=== PATIENT | female | born 1930 | race Caucasian/White ===

== ENCOUNTER 2018-01-13 18:39 | Emergency (ER) | payer MEDICARE, BC ==
[2018-01-13 19:28] LABS: #Basophils 0.1 thou/uL (0.0-0.2); #Eosinphils 0.1 thou/uL (0.0-0.7); #Lymphocytes 1.9 thou/uL (1.20-3.40); #Monocytes 0.9 thou/uL (0.11-0.59); %Basophils 0.5 % (0.0-1.0); %Eosinophils 0.5 % (0.0-10.0); %Lymphocytes 13.7 % (21.0-51.0); %Monocytes 6.6 % (0.0-10.0); %Neutrophils 78.7 % (42.0-75.0); Hemoglobin 14.3 g/dL (12.0-16.0); Mean Corpuscular HGB CONC 32.8 g/dL (32.0-36.0); Mean Corpuscular Hemoglobin 31.3 pg (27.0-31.0); Mean Corpuscular Volume 95.5 fl (81.0-99.0); Platelet Count 308 thou/uL (130-400); RBC Distribution Width 11.8 % (11.5-14.5); Red Blood Cell (RBC) Count 4.58 mill/uL (4.20-5.40)
[2018-01-13 19:52] LABS: ALT (SGPT) 15 U/L (8-55); AST (SGOT) 18 U/L (5-34); Albumin 3.8 g/dL (3.4-4.8); Alkaline Phosphatase 122 U/L (40-150); Anion Gap 14 mmol/L (10-20); BUN (Urea Nitrogen) 15 mg/dL (9.8-20.1); Bilirubin, Total 0.3 mg/dL (0.2-1.2); CK (CPK) 26 U/L (29-168); Calc. Creatinine Clearance 0 mL/min (70-130); Calcium 9.7 mg/dL (7.8-10.44); Carbon Dioxide 25 mmol/L (23-31); Chloride 102 mmol/L (98-107); Estimated GFR-MDRD 54; Globulin 3.7 g/dL (2.4-3.5); Glucose 142 mg/dL (83-110); Potassium 4.3 mmol/L (3.5-5.1); Protein, Total 7.5 g/dL (6.0-8.3); Sodium 137 mmol/L (136-145)
[2018-01-13 19:57] LABS: CKMB 0.4 ng/mL (0-6.6); Troponin I Less than 0.010 ng/mL (< 0.028)
--- NOTE | 2018-01-13 20:26 | RAD ---
CHEST ONE VIEW 01/13/18 HISTORY: Weakness. Cough. Fever. FINDINGS: Cardiac silhouette is magnified by projection. Pulmonary vasculature is unremarkable. Lungs remain hy perinflated with scarring at the bases. Mediastinum is midline with aortic calcification. Prominence of the right upper mediastinum is stable and likely related to tortuosity of the vasculature. No loba r consolidation or evidence of pneumothorax. IMPRESSION: Chronic type findings are stable. No active cardiopulmonary abnormalities are demonstrated. POS: [facility]
[2018-01-13 21:25] LABS: Bilirubin Negative (Negative); Blood, Urine Negative (Negative); Clarity CLEAR (Clear); Glucose, Urine (Dipstick) Negative (Negative); Leukocyte Small (Negative); Nitrite Negative (Negative); Protein, Urine (Dipstick) Negative (Neg-Trace); Specific Gravity, Urine 1.008 (1.002-1.036)
[2018-01-13 21:27] LABS: Bacteria/HPF 1+ HPF (None Seen); Hyaline Casts/LPF 0-3 HYALINE CAST LPF (0-3 Hyaline); RBC/HPF None Seen HPF (0-3); Squamous Epithelial 0-3 HPF (0-3)
--- NOTE | 2018-01-16 13:10 | EKG ---
Test Reason : Blood Pressure : / mmHG Vent. Rate : 102 BPM Atrial Rate : 102 BPM P-R Int : 134 ms QRS Dur : 120 ms QT Int : 358 ms P-R-T Axes : 013 -49 -28 degrees QTc Int : 466 ms Sinus tachycardia Left axis deviation Right bundle branch block Possible Lateral infarct , age undetermined Inferior infarct , age undetermined Abnormal ECG Confirmed by MELISA CARBALLO ([id number]), communications editor YANY ZEPEDA ([id number]) on 01/16/2018 1:09:37 PM Referred By: Confirmed By:MELISA CARBALLO
== END 2018-01-13 22:48 | disposition home or self-care (01) ==
LOC: ERS 18:39
DX: N39.0 Urinary tract infection, site not specified (principal); R05 Cough; F32.9 Major depressive disorder, single episode, unspecified; F03.90 Unspecified dementia, unspecified severity, without behavioral disturbance, psychotic disturbance, mood disturbance, and anxiety; J45.909 Unspecified asthma, uncomplicated; K21.9 Gastro-esophageal reflux disease without esophagitis; Z79.899 Other long term (current) drug therapy
CPT/HCPCS: 36415; 51701; 71045; 80053; 81003; 81015; 82553; 83605; 84484; 85025; 87040; 93005; 94640; 96360; 96361; A4353; J7620

== ENCOUNTER 2018-10-18 12:47 | Outpatient (CLI) | payer MEDICARE, BC ==
[~2018-10-18 12:47] MED LIST: Iopamidol 370 76% 100 ML VIAL ONE
--- NOTE | 2018-10-18 15:49 | CT ---
CT OF HEAD WITH AND WITHOUT CONTRAST: INDICATION: Ataxia. FINDINGS: There is ventricular prominence and mild parenchymal volume loss. Moderate microvascular ischemic di sease of the cerebral white matter is present. There is no intracranial hemorrhage, mass effect, or midline shift. Postcontrast imaging of the brain reveals no pathologic intraaxial enhancement. There is mild mucosa l thickening in the paranasal sinuses. IMPRESSION: 1. Mild ventriculomegaly. This may relate to parenchymal volume loss given the degree of sulcal pro minence as well as moderate chronic microvascular ischemic disease. 2. No pathologic intraaxial enhancement. POS: [facility]
--- NOTE | 2018-10-18 15:52 | CT ---
CT LUMBAR SPINE NONCONTRAST: Date: 10/18/18 HISTORY: 88-year-old female with low back pain and ataxia. COMPARISON: None available. FINDINGS: There are five lumbar-type vertebrae. Vertebral body heights are maintained. There is a moderate to s evere levoscoliosis with apex of curvature at L2. This results in asymmetrically severe right-sided d egenerative disc disease at L1-2 and L2-3, and severe right degenerative facet disease at L1-2, L2-3, and L3-4, along the concave sides of the main curvature; and asymmetrically severe left-sided degene rative disc disease and left-sided severe degenerative facet disease at L5-S1, on the left, concave s [place] of the counter-curvature. There are diffuse disc bulges at every level. There is ligamentum flavu m thickening of varying degrees at different levels. Findings by individual levels regarding central and neural foraminal stenosis are as follows: T12-L1: No high grade central or neural foraminal stenosis. L1-2: No high grade central stenosis. Moderate to severe right neural foraminal stenosis. L2-3: Mild central stenosis. No high grade neural foraminal stenosis. L3-4: Extremely severe central stenosis. Mild to moderate bilateral neural foraminal stenosis. L4-5: Extremely severe central spinal canal stenosis. Mild to moderate bilateral neural foraminal st enosis. The severe facet DJD causes a Grade I anterolisthesis of L4 on L5, contributing to the centra l and neural foraminal stenosis. L5-S1: Mild to moderate central spinal canal stenosis. No right-sided neural foraminal stenosis. Mil d left neural foraminal stenosis. IMPRESSION: 1. Severe lumbar spondylosis with prominent levoscoliosis, asymmetrically severe degenerative disc d isease, and asymmetrically severe facet osteoarthrosis, at certain levels. 2. Extremely severe central spinal canal stenosis at L3-4 and especially L4-5. 3. Mild Grade I anterolisthesis of L4 on L5 due to the facet osteoarthrosis. POS: [facility]
== END 2018-10-18 12:48 | disposition home or self-care (01) ==
LOC: BICCT 12:47
PROVIDERS: ATTEND Family Medicine
DX: R27.0 Ataxia, unspecified (principal); M47.816 Spondylosis without myelopathy or radiculopathy, lumbar region; M51.36 Other intervertebral disc degeneration, lumbar region; M41.9 Scoliosis, unspecified; M48.061 Spinal stenosis, lumbar region without neurogenic claudication; M43.16 Spondylolisthesis, lumbar region
CPT/HCPCS: 70470; 72131; 82565

== ENCOUNTER 2018-11-01 12:09 | Emergency (ER) | payer MEDICARE, BC ==
[2018-11-01 13:31] LABS: #Neutrophils 13.7 thou/uL (1.40-6.50); %Basophils 0.3 % (0.0-1.0); %Lymphocytes 6.3 % (21.0-51.0); %Monocytes 6.3 % (0.0-10.0); %Neutrophils 87.1 % (42.0-75.0); Hemoglobin 13.1 g/dL (12.0-16.0); Mean Corpuscular Hemoglobin 27.4 pg (27.0-31.0); Mean Corpuscular Volume 85.6 fL (78.0-98.0); Mean Platelet Volume 7.1 fL (7.4-10.4); Platelet Count 358 thou/uL (130-400); RBC Distribution Width 12.4 % (11.5-14.5); White Blood Cell (WBC) Count 15.7 thou/uL (4.8-10.8)
[2018-11-01 13:48] LABS: ALT (SGPT) 14 U/L (8-55); AST (SGOT) 21 U/L (5-34); Albumin 3.5 g/dL (3.4-4.8); Alkaline Phosphatase 117 U/L (40-150); Anion Gap 16 mmol/L (10-20); BUN (Urea Nitrogen) 25 mg/dL (9.8-20.1); Bilirubin, Total 0.3 mg/dL (0.2-1.2); Calc. Creatinine Clearance 0 mL/min (70-130); Calcium 9.6 mg/dL (7.8-10.44); Carbon Dioxide 22 mmol/L (23-31); Chloride 103 mmol/L (98-107); Estimated GFR-MDRD 48; Globulin 3.4 g/dL (2.4-3.5); Glucose 128 mg/dL (83-110); Protein, Total 6.9 g/dL (6.0-8.3); Sodium 136 mmol/L (136-145)
[2018-11-01 13:57] LABS: Bilirubin Small (Negative); Blood, Urine Negative (Negative); Clarity Clear (Clear); Glucose, Urine (Dipstick) Negative (Negative); Leukocyte Negative (Negative); Nitrite Negative (Negative); Protein, Urine (Dipstick) 30 mg/dL (Neg-Trace); Specific Gravity, Urine 1.025 (1.005-1.030); Urobilinogen 0.2 mg/dL (0.2-1.0)
[2018-11-01 14:08] LABS: Bacteria/HPF 2+ HPF (None Seen); Hyaline Casts/LPF 0-3 HYALINE CAST LPF (0-3 Hyaline); RBC/HPF None Seen HPF (0-3); WBC/HPF None Seen HPF (0-3)
--- NOTE | 2018-11-01 14:48 | RAD ---
RADIOGRAPH CHEST 2 VIEWS: Date: 11/01/18 Time: 1356 hours HISTORY: 88-year-old female with generalized weakness, nausea, and syncope. COMPARISON: 07/21/17. FINDINGS: The comparison is difficult because the lungs are hypoinflated on the current study, and the frontal view was shot in lordotic angulation. This results in the anterior portion of the diaphragm and upper abdominal contents overlapping those of the lung bases significantly. There is a large air fluid lev el in a distended viscus in the upper abdominal cavity, probably a distended stomach. No pleural effu iman, pulmonary edema, or pneumothorax. No gross consolidation. IMPRESSION: 1. Limited study. 2. No gross evidence of acute pulmonary findings. 3. Distended stomach. JN [] POS: [facility]
== END 2018-11-01 16:35 | disposition home or self-care (01) ==
LOC: SCSER 12:09
DX: K59.00 Constipation, unspecified (principal); R55 Syncope and collapse; F03.90 Unspecified dementia, unspecified severity, without behavioral disturbance, psychotic disturbance, mood disturbance, and anxiety; J45.909 Unspecified asthma, uncomplicated; K21.9 Gastro-esophageal reflux disease without esophagitis; F32.9 Major depressive disorder, single episode, unspecified; Z79.899 Other long term (current) drug therapy
CPT/HCPCS: 51701; 71046; 80053; 81003; 81015; 84484; 85025; 87086; 93005; A4353

== ENCOUNTER 2018-11-03 15:27 | Outpatient (CLI) | payer MEDICARE, BC ==
--- NOTE | 2018-11-03 17:24 | RAD ---
2 VIEWS ABDOMEN; Date: 11/03/18 COMPARISON: None. HISTORY: Dysphagia with nausea and weakness. FINDINGS: Two views of the abdomen show air-filled loops of small bowel in the right upper quadrant of the abdo men. Air is seen throughout the colon to the level of the rectum. No free air is seen on the upright examination. A few air fluid levels are seen within these air-filled lops of small bowel. IMPRESSION: Air-filled loops of small bowel may be secondary to ileus or partial small bowel obstruction. POS: [facility]
== END 2018-11-03 15:28 | disposition home or self-care (01) ==
LOC: BICRAD 15:27
PROVIDERS: ATTEND Physician Assistant Medical
DX: F03.90 Unspecified dementia, unspecified severity, without behavioral disturbance, psychotic disturbance, mood disturbance, and anxiety (principal); R11.0 Nausea; R13.10 Dysphagia, unspecified; M62.81 Muscle weakness (generalized)
CPT/HCPCS: 74019

== ENCOUNTER 2018-11-04 09:31 | Inpatient (IN) | payer MEDICARE, BC ==
[2018-11-04 11:46] LABS: #Eosinphils 0.1 thou/uL (0.0-0.7); #Lymphocytes 1.6 thou/uL (1.20-3.40); #Monocytes 1.4 thou/uL (0.11-0.59); #Neutrophils 8.6 thou/uL (1.40-6.50); %Basophils 0.3 % (0.0-1.0); %Eosinophils 0.6 % (0.0-10.0); %Monocytes 11.8 % (0.0-10.0); %Neutrophils 73.4 % (42.0-75.0); Mean Corpuscular HGB CONC 32.5 g/dL (32.0-36.0); Mean Corpuscular Hemoglobin 28.4 pg (27.0-31.0); Mean Corpuscular Volume 87.3 fL (78.0-98.0); Mean Platelet Volume 6.9 fL (7.4-10.4); Platelet Count 410 thou/uL (130-400); RBC Distribution Width 12.2 % (11.5-14.5); Red Blood Cell (RBC) Count 4.58 mill/uL (4.20-5.40); White Blood Cell (WBC) Count 11.8 thou/uL (4.8-10.8)
--- NOTE | 2018-11-04 11:57 | CT ---
HEAD CT WITHOUT CONTRAST: HISTORY: Unwitnessed fall. COMPARISON: 10/18/2018 FINDINGS: No parenchymal hemorrhage. No extraaxial hematoma. No midline shift. The basilar cisterns are locke nt. Age-appropriate atrophy. Cortical seo white matter differentiation is preserved. The ventricles and sulci are patent and symmetric. White matter hypodensity due to chronic small vessel ischemic changes are again demonstrated. Adequate aeration of the sinuses and mastoid air cells. There is atherosclerosis of the carotid katelin joe. The calvarium is intact. There is a small left frontal scalp hematoma. IMPRESSION: No intracranial posttraumatic sequelae. No acute intracranial process. POS: [facility]
--- NOTE | 2018-11-04 12:00 | CT ---
CT CERVICAL SPINE WITHOUT CONTRAST: HISTORY: Pain. Unwitnessed fall. Uncertain how long the patient had been down. FINDINGS: No craniocervical dissociation. Appropriate alignment of the lateral masses of C1 and C2. Intact od ontoid process. Soft tissue neck structures are unremarkable. There is atherosclerosis of both carotid arteries. The upper mediastinum and lung apices are unremarkable. Varying degrees of central canal stenosis and neural foraminal narrowing on the basis of degenerative change. Cervical spine vertebral body height appears to be maintained. There is no cervical spine fracture. Straightening of the normal cervical lordosis may be due to patient position, muscle spasm, or cervic al color. The current study is not tailored to assess for ligamentous injury. Grade 1 anterolisthesis of C4 upon C5. Grade 1 anterolisthesis of C7 upon T1. Anterolisthesis is pr esumed to be due to degenerative change. IMPRESSION: 1. Degenerative and chronic changes of the cervical spine, as detailed above. No evidence of cervic al spine fracture. 2. Straightening of normal cervical lordosis, as detailed above. If there is concern for ligamentou s injury, consider MRI. POS: [facility]
[2018-11-04 12:03] LABS: ALT (SGPT) 19 U/L (8-55); AST (SGOT) 27 U/L (5-34); Albumin 3.4 g/dL (3.4-4.8); Alkaline Phosphatase 110 U/L (40-150); Anion Gap 18 mmol/L (10-20); BUN (Urea Nitrogen) 22 mg/dL (9.8-20.1); Bilirubin, Total 0.4 mg/dL (0.2-1.2); Calc. Creatinine Clearance 0 mL/min (70-130); Calcium 9.5 mg/dL (7.8-10.44); Carbon Dioxide 17 mmol/L (23-31); Chloride 101 mmol/L (98-107); Estimated GFR-MDRD 66; Globulin 3.4 g/dL (2.4-3.5); Glucose 92 mg/dL (83-110); Potassium 4.8 mmol/L (3.5-5.1); Protein, Total 6.8 g/dL (6.0-8.3); Sodium 131 mmol/L (136-145)
--- NOTE | 2018-11-04 12:08 | RAD ---
ABDOMEN TWO VIEWS: CHEST ONE VIEW: HISTORY: Fall. COMPARISON: None. FINDINGS: There are dilated loops of small bowel in the upper abdomen. No definite free air is appreciated. D ense vascular calcifications of the aorta. Moderate to severe levoscoliosis of the lumbar spine. The lungs are hypoinflated with vascular crowding. Prominence of the right paratracheal stripe, like ly from tortuous vessels. IMPRESSION: 1. Mildly distended loops of small bowel in the abdomen, which can be seen with small bowel obstruct ion versus ileus. POS: [facility]
[2018-11-04 12:33] LABS: Bilirubin Negative (Negative); Blood, Urine Negative (Negative); Clarity CLEAR (Clear); Glucose, Urine (Dipstick) Negative (Negative); Leukocyte Negative (Negative); Nitrite Negative (Negative); Protein, Urine (Dipstick) Negative (Neg-Trace); Specific Gravity, Urine 1.017 (1.002-1.036); Urobilinogen 0.2 mg/dL (0.2-1.0)
[2018-11-04] MEDS ORDERED: Bisacodyl 5 MG TAB PO PRN (15:24)
[2018-11-04] MEDS ORDERED: Ondansetron ODT 4 MG TAB PO PRN (15:24)
[2018-11-04] MEDS ORDERED: Ondansetron PF 4 MG/2 ML Vial IVP PRN (15:24)
[2018-11-04] MEDS ORDERED: Acetaminophen 650 MG Suppository PR PRN (15:24)
[2018-11-04] MEDS ORDERED: Acetaminophen 325 MG TAB PO PRN (15:24)
--- NOTE | 2018-11-04 15:30 | RAD ---
CHEST ONE VIEW: History: Chest pain. Comparison: 01-13-18 FINDINGS: The enteric tube is place with tip in the gastric body. Heart size is enlarged. The lungs are hypoinf lated with vascular crowding. No pneumothorax or large effusion. There is subacromial narrowing on the right. There are distended loops of bowel in the upper abdomen. IMPRESSION: Continued distended loops of bowel in the upper abdomen. The enteric tube tip is in the gastric body. POS: [facility]
[2018-11-04] MEDS: Sodium Chloride 0.9% 1,000 ML IV SCH (16:00)
[2018-11-04 16:04] VITALS: BMI 27.1
--- NOTE | 2018-11-05 00:27 | HP ---
CHIEF COMPLAINT: Unwitnessed fall with a laceration on the forehead, concern of small bowel obstruction with abdominal distension and no bowel movement, loss of appetite. HISTORY OF PRESENTING ILLNESS: This is an 88-year-old female, who presented to the ER status post fall at home that was unwitnessed. [facility] and she had fallen from her bed and was down for an unknown period of time. The patient also had visited her GI, Dr. Diaz yesterday with concerns of small-bowel obstruction, abdominal distension, nausea, and loss of appetite. The patient also had visited our ER on Thursday and it was thought to be a constipation and she was disimpacted and was sent home. She subsequently took Mag citrate following which she had a very large bowel movement on Thursday, but since then the patient had no bowel movement. She does not seem to be passing any gas, complaining of nausea, and refusing to eat. Family also noticed that her abdomen was getting more and more distended. Today after the fall, the patient was brought to the ER for the evaluation of the fall, laceration, concerns of small-bowel obstruction. The CT of the head and spine over here did not show any acute injuries. The abdominal series showed possible ileus/possible small-bowel obstruction. PAST MEDICAL HISTORY: The patient's medical history is significant for dementia and GERD and Raymundo's esophagus. PAST SURGICAL HISTORY: Significant for large hiatal hernia repair, which also involved removal of almost 30% of her stomach, bilateral inguinal hernia repair. The patient also had multiple EGDs and dilatation of her Raymundo esophagus in the past and the last one she had was in 2010. PSYCHIATRIC HISTORY: Denies any psychiatric history except for dementia that has been slowly progressing for past 20 years. SOCIAL HISTORY: The family denies any use of alcohol or drugs. ALLERGIES: KNOWN ALLERGIES, ROCEPHIN. REVIEW OF SYSTEMS: Could not be obtained because of the patient's dementia. Rest of the review of system is as above. PHYSICAL EXAMINATION: VITAL SIGNS: Blood pressure 143/84, pulse 80, respiratory rate 19, pain 0, O2 saturation on room air is 95. Her vital signs are within normal limits. CONSTITUTIONAL: The patient appears in no apparent distress. HEENT: Head examination status post fall, has a 2 cm left upper forehead laceration. No bleeding. Has some degree of ecchymosis. Eyelids and conjunctivae are within normal limits. Pupils are round and reactive to light. External ears and canal with the tympanic membrane is within normal limits. No redness or discharge noted. Trachea is centrally placed with preserved range of motions of the neck. RESPIRATORY/CHEST: Respiratory and chest examination are within normal limits. Breath sounds are clear. No wheezing or rales. CARDIOVASCULAR SYSTEM: Within normal limits. Heart rate is regular and rhythmic. No murmurs, no gallops, no rubs heard. ABDOMEN: Mildly distended, reduced bowel sounds. No mass or pulsatile masses felt. MUSCULOSKELETAL: Both upper and lower extremity examinations are within normal limits. Range of motion is intact. No bruises or swelling is seen. NEURO: No focal motor deficits. The patient is moving all her extremities well. Alert and oriented x2. RADIOLOGY: Head CT without contrast did not show any acute process. Cervical spine CT did not show any acute changes. ASSESSMENT AND PLAN: 1. Small bowel obstruction versus ileus: We will keep patient n.p.o. and NG tube for low suction. IV fluids, normal saline at 75 mL/h. 2. We will keep the patient comfortable and try to avoid narcotics as much as we can. 3. We will consult Dr. Dalton and also Dr. Diaz. 4. Symptomatic and supportive treatment. Job ID: [id number]
[2018-11-05] MEDS: Sodium Chloride 0.9% 1,000 ML IV SCH ×2 (03:52→17:28)
[2018-11-05 07:36] LABS: #Lymphocytes 1.7 thou/uL (1.20-3.40); #Monocytes 1.1 thou/uL (0.11-0.59); #Neutrophils 8.9 thou/uL (1.40-6.50); %Basophils 0.3 % (0.0-1.0); %Eosinophils 0.3 % (0.0-10.0); %Lymphocytes 14.5 % (21.0-51.0); %Monocytes 9.3 % (0.0-10.0); %Neutrophils 75.6 % (42.0-75.0); Hemoglobin 11.9 g/dL (12.0-16.0); Mean Corpuscular HGB CONC 32.4 g/dL (32.0-36.0); Mean Corpuscular Hemoglobin 28.7 pg (27.0-31.0); Mean Corpuscular Volume 88.5 fL (78.0-98.0); Platelet Count 395 thou/uL (130-400); RBC Distribution Width 12.3 % (11.5-14.5); Red Blood Cell (RBC) Count 4.14 mill/uL (4.20-5.40); White Blood Cell (WBC) Count 11.8 thou/uL (4.8-10.8)
[2018-11-05 07:45] LABS: Anion Gap 13 mmol/L (10-20); BUN (Urea Nitrogen) 24 mg/dL (9.8-20.1); Calc. Creatinine Clearance 45 mL/min (70-130); Calcium 8.7 mg/dL (7.8-10.44); Carbon Dioxide 19 mmol/L (23-31); Chloride 106 mmol/L (98-107); Estimated GFR-MDRD 69; Glucose 78 mg/dL (83-110); Potassium 4.4 mmol/L (3.5-5.1); Sodium 134 mmol/L (136-145)
[2018-11-05] MEDS: Enoxaparin Sodium 30 MG/0.3 ML SYRINGE SC SCH (09:13)
--- NOTE | 2018-11-05 16:09 | PDOC.PN ---
- Subjective Encounter Start Date: 11/05/18 Encounter Start Time: 16:04 Subjective: Continued NG tube out put, patient with no complains - Objective DW family, they are not ready to make any decision yet and will continue Full Resuscitation as of now. MAR Reviewed: Yes Vital Signs & Weight: Vital Signs (12 hours) Temp Pulse Resp BP Pulse Ox 11/05/18 11:03 98.8 F 80 18 148/82 H 96 11/05/18 08:00 96 11/05/18 07:26 98.8 F 77 16 133/80 96 11/05/18 05:01 98.2 F 84 16 155/83 H 95 Weight Admit Weight 130 lb 1 oz Weight 130 lb 1 oz I&O: 11/04/18 11/05/18 11/06/18 06:59 06:59 06:59 Intake Total 820 Output Total 250 Balance 570 Result Diagrams: 11/05/18 07:14 11/05/18 07:14 Radiology Reviewed by me: Yes Phys Exam - Physical Examination HEENT: PERRLA, moist MMs, sclera anicteric, TM's clear, oral pharynx no lesions , 2+ tonsils Neck: no nodes, no JVD, supple, full ROM Respiratory: no wheezing, no rales +NG tube for suction Cardiovascular: RRR, no significant murmur, no rub Gastrointestinal: soft, non-tender reduced bowel sounds Musculoskeletal: no edema, pulses present Neurological: non-focal, normal sensation, moves all 4 limbs Psychiatric: normal affect Deviation from normal: oriented X 1 Skin: no rash, normal turgor, cap refill <2 seconds Dx/Plan (1) SBO (small bowel obstruction) Code(s): K56.609 - UNSP INTESTNL OBST, UNSP TO PARTIAL VERSUS COMPLETE OBST Status: Acute Comment: NPO, Continue NG tube to suction. Surgery on boards. Will clamp the tube in am and reevlauate ileus vs. SBO. - Plan cont current plan of care, plan discussed w/ family, DVT proph w/SCDs * .
[2018-11-05] MEDS ORDERED: Pantoprazole 40 MG VIAL IVP SCH (16:15)
[2018-11-05] MEDS ORDERED: Fleet Enema 133 ML BOT FS ONE (20:00)
--- NOTE | 2018-11-05 22:04 | RAD ---
KUB: 11/05/18 HISTORY: NG tube placement. Bowel gas pattern appears nonobstructed. NG tube is seen with tip in the fundus of the stomach. Arthr itic changes of the spine with severe scoliosis are noted. Vascular calcifications are present. IMPRESSION: NG tube with tip in the fundus region of the stomach. POS: [facility]
[2018-11-05] MEDS: Bisacodyl 10 MG SUPP PR SCH (22:16)
--- NOTE | 2018-11-06 04:15 | HP ---
HISTORY OF PRESENT ILLNESS: Alina Lainez is an 88-year-old demented female admitted to the Hospitalist Service on 11/04/2018. Since been admitted, Dr. Garcia has seen her in consultation. She apparently suffered a fall. Prior to this fall, she had seen Dr. Diaz at GI outpatient office and there was history of loss of appetite, abdominal distention, and nausea. There was concern about bowel obstruction. She visited the ER earlier in the week, was thought to have constipation, was disimpacted, sent home. She took magnesium citrate, afterwards, she had a very large bowel movement on Thursday, but has not had a bowel movement since. Since being admitted, she has abdominal x-ray demonstrating distended small bowel loops. Apparently on admission, she had a CAT scan of the head and spine that did not show any acute injuries. Sometime earlier today, the NG tube was placed. The nurse reports the NG tube is at 45 cm and has not put out more than 100 through the day. I asked the nurse to advance the NG tube to 60 cm and abdominal x-ray was obtained revealing it to be in good position in the upper stomach. Plain abdominal x-rays do reveal some gas in her left colon and transverse colon as well as some distended loops of bowel. ALLERGIES: CEFTRIAXONE. SOCIAL HISTORY: Tobacco, none. Alcohol, none. MEDICATIONS: At home; 1. Multivitamin with vitamin D3. 2. Singulair. 3. Zyprexa. 4. Donepezil. 5. VESIcare. 6. Omeprazole. 7. Dulera inhaler. PAST SURGICAL HISTORY: The patient has had bilateral inguinal hernia repairs with mesh by Dr. Lopez in 2004 or 2005. In 2005, she had a laparoscopic hiatal hernia repair with mesh and Cristina fundoplication. She has history of Raymundo esophagus followed by Dr. Diaz. PAST MEDICAL HISTORY: History of dementia, GERD, and Raymundo esophagus. PHYSICAL EXAMINATION: VITAL SIGNS: Height 4 foot 10 inches, weight 130 pounds, 27 BMI, temperature 98.9, pulse 67, and blood pressure 156/84. HEAD, EARS, EYES, NOSE, AND THROAT: Unremarkable. LUNGS: Clear to auscultation. CARDIAC: Regular rate and rhythm without murmur or gallop. ABDOMEN: Soft, nondistended, and nontender. No guarding. EXTREMITIES: Unremarkable. LABORATORY DATA: White count 11, hemoglobin 11.9, sodium 134, and carbon dioxide 19. ASSESSMENT AND PLAN: 1. Ileus versus bowel obstruction. Urine cultures show no growth a few days ago. We will obtain CT scan of the abdomen and pelvis tomorrow, oral contrast through her NG tube. We will make further recommendations pending this visit. On her plain x-rays, I do not see evidence of an impaction, although she has been ordered enemas. 2. Dementia. 3. Non-reliable historian. Job ID: [id number]
[2018-11-06 06:35] LABS: Anion Gap 13 mmol/L (10-20); BUN (Urea Nitrogen) 19 mg/dL (9.8-20.1); Calc. Creatinine Clearance 47 mL/min (70-130); Calcium 8.4 mg/dL (7.8-10.44); Carbon Dioxide 20 mmol/L (23-31); Chloride 107 mmol/L (98-107); Estimated GFR-MDRD 72; Glucose 63 mg/dL (83-110); Magnesium 1.7 mg/dL (1.6-2.6); Phosphorus 2.8 mg/dL (2.3-4.7); Potassium 4.1 mmol/L (3.5-5.1); Sodium 136 mmol/L (136-145)
[2018-11-06] MEDS: Sodium Chloride 0.9% 1,000 ML IV SCH ×2 (07:00→18:04)
--- NOTE | 2018-11-06 07:10 | CON ---
DATE OF CONSULTATION: REASON FOR CONSULT: Ileus versus partial obstruction. HISTORY OF PRESENT ILLNESS: Ms. Lainez is an 88-year-old female, who since about last Thursday has not really had much of an appetite. She has some dementia at baseline for which she takes Aricept, but otherwise does pretty well living with a family practice nurse practitioner in her house, just a couple doors down from one of her daughters. The daughters are at the bedside and relates most of the history as the patient is very pleasant, but does not have much of a memory. Presently, the patient does deny any abdominal pain and seems comfortable. The daughters noted that she was not eating well last Thursday and then threw up once later in the week. She seemed to get worse and had a fall, so she was brought to the emergency room where she was found to have a fecal impaction that was on 11/01. The emergency note indicates the patient had what they thought was a fecal impaction and she was disimpacted and then discharged home. The patient presented to our office in followup and still was not eating well. She looked dehydrated. She was sent to the emergency room on the after those films were notable for possible ileus versus partial obstruction. In the emergency room here, she had an abdominal series yesterday that showed multiple loops that were dilated of small bowel. No overt air-fluid levels. Differential diagnosis of partial obstruction versus ileus was given. The patient was admitted to the hospital, placed on IV fluids, and NG tube placed. The family notes that an NG tube was placed, she had quite a bit of blood return and she had about 500 mL output, but none since then. Her last bowel movement was about 2 days ago in small amount. Emergency room chest x-ray was normal except for the distended loops of bowel. NG tube was noted in the upper stomach. The patient's nurse states that the patient has really been in no distress. She denies any nausea or vomiting. She denies any bowel movements being here. PAST MEDICAL HISTORY: Dementia, reflux, history of Raymundo's esophagus. PAST SURGICAL HISTORY: Prior large hiatal hernia repair with a significant removal in part of the stomach about 30% per the daughters, bilateral inguinal hernia repair in the past, previous EGDs and dilatations, and biopsy for Raymundo's, last was in 2010. Her surgeon is Dr. Aryan Lopez, her mental health social worker is Dr. Ian Diaz. PAST PSYCHIATRIC HISTORY: Negative. SOCIAL HISTORY: Denies any alcohol use, drugs, or tobacco. ALLERGIES: NO KNOWN ALLERGIES EXCEPT FOR ROCEPHIN. REVIEW OF SYSTEMS: Unable to be obtained. MEDICATIONS: At home, 1. VESIcare. 2. Omeprazole. 3. Zyprexa. 4. Multivitamin. 5. Singulair. 6. Dulera. 7. Donepezil. 8. Calciferol. Present medications, 1. Tylenol. 2. Bisacodyl. 3. Lovenox. 4. Zofran. 5. Protonix. 6. Normal saline at 75 an hour. PHYSICAL EXAMINATION: GENERAL: The patient is resting in bed. She is a pleasant female. She is with no overt distress. VITAL SIGNS: Temperature is 99.2 to 98.2, blood pressure 147/84, pulse 76. In general, NG tube is in place with coffee-ground material emesis in the suction canister. HEENT: Oropharynx, no lesions. NECK: Supple. No adenopathy. LUNGS: Clear. HEART: Regular rate and rhythm. No rubs, clicks, or murmurs. ABDOMEN: Slightly protuberant. Bowel sounds are quiet. There is no rebound. There is no guarding. There is no palpable hepatosplenomegaly. There are no bruits. There is no evidence of inguinal hernias. RECTAL: Reveals a soft, large fecal impaction. EXTREMITIES: Reveal no clubbing, cyanosis, or edema. LABORATORY STUDIES: White count is 11.8, it was 15 on the 17th, it was 11.8 yesterday. Hemoglobin was 14 on and 11.9 on 11/05 today. Platelets were little bit elevated at 14 yesterday, 395 today. Sodium 134, potassium 4.4, BUN and creatinine were 24 and 0.79, bicarb is 19, anion gap is 9, calcium 9.5, bilirubin 0.4, AST and ALT are 27 and 19, albumin 3.4. Urine negative. ASSESSMENT: This is an 88-year-old female with what appears to be a fecal impaction and an ileus. She has no overt signs of obstruction, although this is possible. She has had previous abdominal surgeries. She has mild leukocytosis with no overt signs of infection. She had a chest x-ray with no signs of pneumonia. She has negative UA. She does appear to be still somewhat dehydrated. RECOMMENDATIONS: Increase her fluids to 100 an hour. She needs fecal disimpaction with serial enemas. We discussed with the nurse. We will repeat her films in the morning. If there is no improvement after getting her disimpacted with her appetite, we could consider further radiographic imaging and will ask the nurse to perform strict in's and out's. We will add ulcer prophylaxis. Job ID: [id number]
[2018-11-06 07:15] LABS: Band 2 % (5-11); Eosinophils 1 % (0-10); Hemoglobin 11.4 g/dL (12.0-16.0); Lymphocytes 18 % (21-51); MDiff Complete? YES; Mean Corpuscular HGB CONC 32.2 g/dL (32.0-36.0); Mean Corpuscular Hemoglobin 28.7 pg (27.0-31.0); Mean Corpuscular Volume 89.1 fL (78.0-98.0); Mean Platelet Volume 6.7 fL (7.4-10.4); Metamyelocyte 1 % (0-0); Monocytes 2 % (0-10); Neutrophil 75 % (42-75); Platelet Count 363 thou/uL (130-400); RBC Distribution Width 12.4 % (11.5-14.5); Reactive Lymphocytes 1 % (0-10); Red Blood Cell (RBC) Count 3.96 mill/uL (4.20-5.40); White Blood Cell (WBC) Count 12.4 thou/uL (4.8-10.8)
[2018-11-06] MEDS: Enoxaparin Sodium 30 MG/0.3 ML SYRINGE SC SCH (08:51)
[2018-11-06] MEDS: Bisacodyl 10 MG SUPP PR SCH ×2 (08:52→17:10)
[2018-11-06] MEDS ORDERED: Pantoprazole 40 MG VIAL IVP SCH (09:00)
--- NOTE | 2018-11-06 12:35 | PDOC.PN ---
- Subjective Encounter Start Date: 11/06/18 Encounter Start Time: 12:33 Subjective: Comfortable, NG tube clamped after oral contrast through the tube was -: completed. Patient going for abd CT today - Objective MAR Reviewed: Yes Vital Signs & Weight: Vital Signs (12 hours) Temp Pulse Resp BP Pulse Ox 11/06/18 09:01 94 L 11/06/18 07:47 98.7 F 75 18 166/68 H 94 L 11/06/18 05:27 97.4 F L 67 16 144/81 H 94 L Weight Admit Weight 130 lb 1 oz Weight 130 lb 1 oz I&O: 11/05/18 11/06/18 11/07/18 06:59 06:59 06:59 Intake Total 820 900 Output Total 250 175 50 Balance 570 725 -50 Result Diagrams: 11/06/18 06:05 11/06/18 06:05 Phys Exam - Physical Examination HEENT: PERRLA, moist MMs, sclera anicteric, TM's clear, oral pharynx no lesions , 2+ tonsils Neck: no nodes, no JVD, supple, full ROM Respiratory: no wheezing, no rales, no rhonchi Cardiovascular: RRR, no significant murmur Gastrointestinal: soft, non-tender, positive bowel sounds +distention + NG tube clamped Musculoskeletal: no edema, pulses present Neurological: non-focal, normal sensation, moves all 4 limbs Psychiatric: normal affect Deviation from normal: oriented X 1 Skin: no rash, normal turgor, cap refill <2 seconds Dx/Plan (1) SBO (small bowel obstruction) Code(s): K56.609 - UNSP INTESTNL OBST, UNSP TO PARTIAL VERSUS COMPLETE OBST Status: Acute Comment: NPO, Continue NG tube to suction. Surgery on boards. Patient just received oral contrast via NG tbe. Will follow up on CT Abd. S/P OK medication, patient had 2 bowel movements. Continue IV fluids - Plan cont current plan of care, plan discussed w/ family, DVT proph w/SCDs If CTA shows no obstruction, will continue to clamp NG tube and follow up. * .
--- NOTE | 2018-11-06 12:36 | CT ---
CT ABDOMEN AND PELVIS WITH ORAL AND IV CONTRAST: Date: 11/06/18 HISTORY: Abdominal distention. FINDINGS: There are dependent changes in the lung bases. There is fatty infiltration of the liver. A 2.0 cm low density lesion is seen in the left lobe of the liver, which does not meet criteria for a simple cyst . A tiny low density lesion is also seen in the right lobe of the liver. No calcified gallstones are noted. The spleen, pancreas, adrenal glands, and right kidney are normal. There is a 3.0 cm cortical cyst arising from the inferior pole of the left kidney. No free air is seen. There is free fluid in the abdomen or pelvis. There is mild nodular prominence o f the omentum. The small bowel loops are dilated. Contrast has not reached the colon. There is fecal material in the colon and rectum. There is colonic diverticulosis. The possibility of a mass in the c ecum and terminal ileum may be present. A vaginal pessary is present. There are vascular calcifications without evidence of aneurysmal dilatation of the abdominal aorta. T here are degenerative changes in the spine. IMPRESSION: 1. Ascites. 2. Fatty liver. 3. Indeterminate liver lesions. 4. Probable omental caking, suspicious for metastatic disease. 5. Left renal cyst. 6. Colonic diverticulosis. 7. Findings suggestive of small bowel obstruction. 8. ? Cecal/terminal ileum mass. POS: [facility]
--- NOTE | 2018-11-06 12:43 | PRG ---
DATE OF SERVICE: 11/06/2018 SUBJECTIVE: Alina Lainez is doing well today. NG tube properly positioned last night, has only drained 175 mL overnight. The patient did have bowel movements, two of them last night, volume of which is unreported. She denies any pain, but she is a poor historian with her dementia. OBJECTIVE: VITAL SIGNS: Temperature 98.7 degrees, pulse 75, blood pressure 166/88. LUNGS: Clear to auscultation. CARDIAC: Regular rate and rhythm without murmur or gallop. ABDOMEN: Soft, mildly distended, mildly tympanitic, markedly diminished bowel sounds. EXTREMITIES: Unremarkable. LABORATORY DATA: White count 12, hemoglobin 11.4. Basic metabolic profile normal. ASSESSMENT AND PLAN: A CAT scan obtained, formal report pending. She does have contrast and some mildly dilated small bowel loop. She does have a fecal impaction. She does have constipation. We will await radiology read, but this is more in line with constipation and ileus than an obstruction. We will repeat her enemas and hopefully the contrast for the CAT scan will act as a cathartic. We will repeat her abdominal x-rays in the morning. We will give her magnesium citrate per NG tube, clamp, and check x-ray tomorrow and follow clinically. Hopefully, we can avoid any operative intervention. Hopefully, this will resolve nonsurgically. Job ID: [id number]
[2018-11-06] MEDS ORDERED: Fleet Enema 133 ML BOT PR SCH (12:45)
--- NOTE | 2018-11-06 15:00 | PRG ---
DATE OF SERVICE: 11/06/2018 SUBJECTIVE: Ms. Lainez is resting in bed. She is pleasant. She refused enemas and suppositories last night, but is permitting that today. She has had two small bowel movements per daughter. A CAT scan was ordered and performed by Dr. Spence today, which shows mild amount of ascites in the pelvis, indeterminate liver lesions less than 2 cm, possible omental caking per Radiology, and what appears to be small bowel obstruction in addition to fecal impaction. The CT also raises the question for terminal ileal mass or cecal mass. NG tube was advanced by Dr. Spence and followup films showed that in better placement, still there is minimal output. MEDICATIONS: 1. P.r.n. Dulcolax. 2. Lovenox. 3. Normal saline at 75. 4. Zofran. 5. P.r.n. Protonix. 6. Fleet enemas. OBJECTIVE: VITAL SIGNS: Temperature 98, pulse 75, blood pressure 166/68. NG drainage is 50 mL this morning, 175 yesterday, 9 to 7. IMAGES: Her CT scan images were reviewed by myself, discussed with Dr. Spence. ASSESSMENT: Partial small bowel obstruction. She is having minimal NG output. She has no pain. She has a concerning CAT scan and her age and malignancy of either SERVICE LIAISON REPRESENTATIVE, peritoneal cavity or colon were all possibilities. The family is reluctant about any type of surgery. I agree with Dr. Spence's plan to check a CEA and CA-125. At this time, I have talked him about the need to get her disimpacted, as she may have a partial obstruction in ileus picture and if ultimately nothing else resolving the impaction may help her quite a bit, although I agree with Dr. Spence and radiologist there is not an overt colonic obstruction. Case was discussed with Radiology and General Surgery, Dr. Spence and the patient's son-in-law, who is a neurologist in the [facility] as well as a family member. Job ID: [id number]
--- NOTE | 2018-11-06 19:19 | PRG ---
DATE OF SERVICE: SUBJECTIVE: Ms. Lainez's CEA level results were 154.28, CA-125 of 104.3. Discussion was held per telephone with Neurology, relatives out of town and then discussion held with the patient's daughter. Given the patient's baseline dementia and limited functional status and the evidence that this is a malignant obstruction after phone discussion with the family involved and telephone conference with the family, decision was made for nonoperative therapy, DNR, comfort measures. Palliative Care consult is given. Surgery canceled for tomorrow. I agree with family's decision of comfort measures and hospice care. We will leave the NG tube at this point, but if it comes out, we will leave it out as it has had minimal output and it is not significantly helping much. We will stop the Lovenox and routine laboratories and provide hospice comfort measures. Job ID: [id number]
[2018-11-07] MEDS: Bisacodyl 10 MG SUPP PR SCH ×3 (02:37→17:14)
[2018-11-07] MEDS: Fleet Enema 133 ML BOT PR SCH ×3 (02:37→13:01)
[2018-11-07 08:07] LABS: #Basophils 0.1 thou/uL (0.0-0.2); #Eosinphils 0.1 thou/uL (0.0-0.7); #Lymphocytes 1.6 thou/uL (1.20-3.40); #Monocytes 0.9 thou/uL (0.11-0.59); #Neutrophils 7.4 thou/uL (1.40-6.50); %Basophils 0.5 % (0.0-1.0); %Eosinophils 0.6 % (0.0-10.0); %Monocytes 8.9 % (0.0-10.0); %Neutrophils 73.9 % (42.0-75.0); Mean Corpuscular HGB CONC 32.4 g/dL (32.0-36.0); Mean Corpuscular Hemoglobin 28.8 pg (27.0-31.0); Platelet Count 372 thou/uL (130-400); RBC Distribution Width 12.5 % (11.5-14.5); Red Blood Cell (RBC) Count 3.81 mill/uL (4.20-5.40)
[2018-11-07 08:33] LABS: ALT (SGPT) 14 U/L (8-55); AST (SGOT) 19 U/L (5-34); Albumin 2.8 g/dL (3.4-4.8); Alkaline Phosphatase 94 U/L (40-150); Anion Gap 16 mmol/L (10-20); BUN (Urea Nitrogen) 14 mg/dL (9.8-20.1); Bilirubin, Total 0.3 mg/dL (0.2-1.2); Calc. Creatinine Clearance 49 mL/min (70-130); Calcium 8.6 mg/dL (7.8-10.44); Carbon Dioxide 17 mmol/L (23-31); Chloride 106 mmol/L (98-107); Estimated GFR-MDRD 75; Globulin 2.7 g/dL (2.4-3.5); Potassium 3.9 mmol/L (3.5-5.1); Protein, Total 5.5 g/dL (6.0-8.3); Sodium 135 mmol/L (136-145)
[2018-11-07 08:38] LABS: Glucose 51 mg/dL (83-110)
[2018-11-07] MEDS ORDERED: Dextrose 5 % And 0.9 % NaCl 1,000 ML IV SCH (09:30)
--- NOTE | 2018-11-07 11:11 | PRG ---
DATE OF SERVICE: 11/06/2018 I have personally reviewed the patient's CAT scan with Radiology and with Dr. Garcia, Gastroenterology. The patient's CAT scan has more ascites present than one would expect from a bowel obstruction. She has changes in the omentum suggestive of metastatic disease. She has equivocal suspicious findings in the ileocecal area. She had a colonoscopy 11 years ago that was normal. With these findings, I have discussed with the patient's family and ordered tumor markers. The CEA level, I have ordered, reveals increased level of 154. CA 125 and 19-9 are pending. CAT scan of the pelvis did not reveal any adnexal or gynecological abnormalities, and I do not think ultrasound will help. There is an excellent chance that the patient's obstruction is due to metastatic disease. I have talked to the patient's daughter and also talked to the physician, family, relative over the phone, spending more than an hour with the patient and the family in multiple conversations in addition reviewing her CAT scan and discussing results with all physicians. Plan at this time would be a DNR status. Family definitely would desire a DNR status, and they believe that she will live well at home, they are in agreement with that. As far as her palliation for existing problem, plan is for laparoscopy tomorrow. Diagnostic and pending operative findings options include small bowel and/or colon resection to reestablish continuity and resolve the obstruction versus palliative findings, pending operative findings. I would discuss their wishes and we will tentatively schedule for laparoscopy tomorrow and discuss with them further in the morning. With her elevated CEA level of 154, this is certainly consistent with a malignancy and will not resolve nonoperatively and an operation would only provide palliative results noncurative. This was communicated to the family and they understand. The patient had very marginal function prior to this and with her dementia, she required care, sitters throughout the day, although the family put her to bed at night alone. This will certainly change her living status. Job ID: [id number]
--- NOTE | 2018-11-07 13:47 | PDOC.EVN ---
Event Note - Event Note Event Note: Patient now on comfort care only. Abd CT with omental nodularity, liver mets, SBO, possible cecal mass? Continue IV fluids, NG tube to suction. Palliative care on board. Stop labs.
--- NOTE | 2018-11-07 14:43 | PRG ---
DATE OF SERVICE: 11/07/2018 SUBJECTIVE: Ms. Lainez has had a little bit of stool output with the enemas. She is more alert today per her family. The nurse notes that she does not really seem to have impaction any longer. Medications given were 100 mL an hour of normal saline and Zofran. She has had no overt pain. OBJECTIVE: VITAL SIGNS: Temperature 97.7, pulse 71, blood pressure 163/84. NG canister has minimal output, 50 mL today and 175 last night. GENERAL: The patient is alert and awake. LUNGS: Clear. ABDOMEN: Nontender. Bowel sounds are quiescent. EXTREMITIES: No clubbing, cyanosis, or edema. LABORATORY DATA: White count 10, hemoglobin 11, and platelet count 372. Sodium 135, potassium 3, chloride 106, bicarb 17, anion gap 12, BUN 14, creatinine 0.7, glucose 51, protein 5, albumin 2.8, CEA was 154. ASSESSMENT: 1. Fecal impaction, improving. 2. Bowel obstruction with some likely omental caking, possible massive structure to the ileocecal mass, and obstruction of the ileocecal area. 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 Her last colonoscopy was over 10 years ago. Family is presently trying to decide what they want to do. Dr. Spence did offer surgery for exploration for diagnosis or possible palliation. With light of the omental caking and small liver lesions, this is likely metastatic disease, but of course, this is not a definitive diagnosis without tissue. We talked with the patient's daughter, who is here today as well as the patient's son-in-law, who is a neurologist in the [facility]. I explained these issues to them. They requested to talk with Palliative Care as they not sure if they want to put her mother through the surgery if it is not going to really help her, especially with her advanced dementia and advanced age. 3. Advanced dementia. PLAN: 1. Continue IV fluids. 2. I asked the nurse to contact Palliative Care. Again, they came by and talked with the patient's son, who is really not been here or involved much in day-to-day issues and he is not the primary decision maker. Apparently, the daughter is power of litigation attorney associate and she is here now and I have asked the nurse to contact Palliative Care to see if they can either talk to her on the phone or in person. We will continue to follow along with you. Job ID: [id number]
[2018-11-07] MEDS ORDERED: Morphine 4 MG/ML VIAL SLOW IVP PRN ×2 (16:32)
[2018-11-07] MEDS ORDERED: Acetaminophen 1,000 MG in Premix Bag 1 BAG IVPB PRN (16:34)
--- NOTE | 2018-11-07 20:39 | PRG ---
DATE OF SERVICE: 11/07/2018 SUBJECTIVE: Alina Lainez is doing well today. She seems comfortable. 97.7 degrees, 71, 163/84. She inadvertently had labs drawn. Her sugar was low and she started on IV fluids. I have discontinued these. I had a long discussion with the family regarding hospice care and decision is to stop her IV fluids. I have stopped her enema, stopped her Dulcolax suppositories, have ordered morphine p.r.n., Ofirmev IV p.r.n. NG tube has had only 50 mL out in the last 24 hours. If it comes out, I would leave it out. She can have ice chips, hard candy, sips of water with NG tube. If the NG tube comes out, leave it out. If she is discharged with home hospice, I would take the NG tube out and continue hospice care. NG tube has not put out anything and has not offered anything as far as her comfort. At this point, I will see her as needed. Please call if necessary. Job ID: [id number]
--- NOTE | 2018-11-07 21:01 | PRG ---
DATE OF SERVICE: 11/07/2018 SUBJECTIVE: Alina Lainez is doing well today. She has an NG tube down and has put out very little in the last 24 hours, 50 mL. She appears to be comfortable. OBJECTIVE: LUNGS: Clear to auscultation. CARDIAC: Regular rate and rhythm without murmur or gallop. ABDOMEN: Soft. LABORATORY DATA: today and she is noted to be hypoglycemic. The patient's son is at the bedside, and I have discussed care with him. Questions had been answered. The patient has a malignant obstruction of her small bowel. We will discontinue suppositories and Fleet's enemas. We will discontinue IV fluids. We will order comfort measures. Family is deciding on hospice plans. I will see the patient as needed, please call if necessary. I have talked to the family extensively yesterday and today. She has two tumor markers that are abnormal and suggesting of a generated GI malignancy obstructing her distal small bowel. Operative intervention has been determined by family not to be desirable and I agree with this decision. Job ID: [id number]
--- NOTE | 2018-11-08 12:16 | PDOC.PN ---
- Subjective Encounter Start Date: 11/08/18 Encounter Start Time: 12:14 Subjective: Comfortable, no complains - Objective Resuscitation Status - Order Detail: 11/06/18 14:37 Resuscitation Status Routine Resuscitation Status: DNAR: NO Resuscitation Discussed with: d/w family MAR Reviewed: Yes Vital Signs & Weight: Vital Signs (12 hours) Pulse Ox 11/08/18 08:00 94 L Weight Admit Weight 130 lb 1 oz Weight 130 lb 1 oz I&O: 11/07/18 11/08/18 11/09/18 06:59 06:59 06:59 Intake Total 500 0 Output Total 52 200 200 Balance 448 -200 -200 Result Diagrams: 11/07/18 07:24 11/07/18 07:24 Phys Exam - Physical Examination HEENT: PERRLA, moist MMs, sclera anicteric, TM's clear, oral pharynx no lesions , 2+ tonsils + ng tube Neck: no nodes, no JVD, supple, full ROM Respiratory: no wheezing, no rales, no rhonchi Cardiovascular: RRR, no significant murmur Gastrointestinal: soft, non-tender, no distention Musculoskeletal: no edema, pulses present Psychiatric: normal affect Deviation from normal: oriented X 1 Dx/Plan (1) SBO (small bowel obstruction) Code(s): K56.609 - UNSP INTESTNL OBST, UNSP TO PARTIAL VERSUS COMPLETE OBST Status: Acute - Plan * .
[2018-11-08] MEDS ORDERED: Pantoprazole 40 MG VIAL IVP SCH (17:15)
[2018-11-08] MEDS: Dextrose 5 % And 0.9 % NaCl 1,000 ML IV SCH (17:38)
--- NOTE | 2018-11-08 18:04 | RAD ---
SINGLE VIEW ABDOMEN: Date: 11/08/18 COMPARISON: 11/05/18. HISTORY: Small bowel obstruction. FINDINGS: Single view of the abdomen shows a nonspecific, nonobstructive bowel gas pattern. Contrast is seen th roughout the colon from recent contrast examination to the level of the rectum. A NG tube is seen in the stomach. IMPRESSION: Nonobstructive bowel gas pattern. POS: [facility]
[2018-11-09] MEDS: Dextrose 5 % And 0.9 % NaCl 1,000 ML IV SCH ×3 (02:44→22:34)
[2018-11-09] MEDS: Pantoprazole 40 MG VIAL IVP SCH (09:21)
--- NOTE | 2018-11-09 11:34 | PDOC.PN ---
- Subjective Encounter Start Date: 11/09/18 Encounter Start Time: 11:31 Subjective: No distress - Objective Resuscitation Status - Order Detail: 11/06/18 14:37 Resuscitation Status Routine Resuscitation Status: DNAR: NO Resuscitation Discussed with: d/w family Vital Signs & Weight: Vital Signs (12 hours) Temp Pulse Resp BP Pulse Ox 11/09/18 08:00 95 11/09/18 07:42 98.2 F 60 16 133/75 95 Weight Admit Weight 130 lb 1 oz Weight 130 lb 1 oz I&O: 11/08/18 11/09/18 11/10/18 06:59 06:59 06:59 Intake Total 1250 Output Total 200 300 Balance -200 950 Result Diagrams: 11/07/18 07:24 11/07/18 07:24 Phys Exam - Physical Examination HEENT: PERRLA, moist MMs, sclera anicteric, TM's clear, oral pharynx no lesions , 2+ tonsils Neck: no nodes, no JVD, supple, full ROM Respiratory: no wheezing, no rales Cardiovascular: RRR, no significant murmur Gastrointestinal: soft, non-tender, no distention hypoactive Bowel sounds Musculoskeletal: edema present Neurological: non-focal, normal sensation, moves all 4 limbs Psychiatric: normal affect Deviation from normal: orients x 1 Dx/Plan (1) SBO (small bowel obstruction) Code(s): K56.609 - UNSP INTESTNL OBST, UNSP TO PARTIAL VERSUS COMPLETE OBST Status: Acute - Plan cont current plan of care, public health social worker * .
--- NOTE | 2018-11-09 16:22 | PRG ---
DATE OF SERVICE: 11/08/2018 SUBJECTIVE: Ms. Lainez is resting comfortably in bed. She is pleasant. She is comfortable, talking with the nurse. The family has not made a decision on comfort care measures yet. Dr. Spence has talked to the family couple of times. Apparently, Palliative Care is talking to them as well. OBJECTIVE: VITAL SIGNS: Temperature is 98, pulse 67, and blood pressure 137/76. ABDOMEN: Soft and nontender. NG tube is in place . LABORATORY DATA: White count 10, hemoglobin 11, platelet count yesterday. No new labs today. ASSESSMENT: Distal small-bowel obstruction, right colon obstruction likely from malignancy, carcinomatosis, and mass seen on CAT scan. CEA and CA-125 were both elevated over 100. The patient is waiting to decide on definitive palliative care treatment the decision had not been made. Recommendation give her dose of Protonix as she is not fully Palliative Care to prevent ulceration. Job ID: [id number]
[2018-11-10 07:35] LABS: Hemoglobin 10.9 g/dL (12.0-16.0); Mean Corpuscular HGB CONC 32.2 g/dL (32.0-36.0); Mean Corpuscular Hemoglobin 28.8 pg (27.0-31.0); Mean Corpuscular Volume 89.6 fL (78.0-98.0); Mean Platelet Volume 6.7 fL (7.4-10.4); Platelet Count 348 thou/uL (130-400); RBC Distribution Width 13.1 % (11.5-14.5); Red Blood Cell (RBC) Count 3.79 mill/uL (4.20-5.40); White Blood Cell (WBC) Count 7.8 thou/uL (4.8-10.8)
[2018-11-10 07:44] LABS: ALT (SGPT) 8 U/L (8-55); AST (SGOT) 15 U/L (5-34); Albumin 2.5 g/dL (3.4-4.8); Alkaline Phosphatase 80 U/L (40-150); Anion Gap 10 mmol/L (10-20); BUN (Urea Nitrogen) 6 mg/dL (9.8-20.1); Bilirubin, Total 0.3 mg/dL (0.2-1.2); Calc. Creatinine Clearance 55 mL/min (70-130); Carbon Dioxide 21 mmol/L (23-31); Chloride 112 mmol/L (98-107); Estimated GFR-MDRD 87; Globulin 2.4 g/dL (2.4-3.5); Glucose 121 mg/dL (83-110); Potassium 3.4 mmol/L (3.5-5.1); Protein, Total 4.9 g/dL (6.0-8.3); Sodium 140 mmol/L (136-145)
[2018-11-10 07:58] LABS: Band 3 % (5-11); Eosinophils 1 % (0-10); Lymphocytes 17 % (21-51); MDiff Complete? YES; Monocytes 7 % (0-10); Neutrophil 70 % (42-75); RBC Morphology Normal; Reactive Lymphocytes 2 % (0-10)
[2018-11-10] MEDS: Pantoprazole 40 MG VIAL IVP SCH (08:13)
[2018-11-10] MEDS: Dextrose 5 % And 0.9 % NaCl 1,000 ML IV SCH ×2 (08:14→19:27)
--- NOTE | 2018-11-10 11:41 | PRG ---
DATE OF SERVICE: 11/09/2018 Ms. Lainez has had about 250 mL out through her NG tube overnight, 50 mL this morning. Total yesterday was 300. She has had some scant bowel movements, she is out of complaints. PRESENT MEDICATIONS: D5 at 100, p.r.n. morphine, Zofran, Protonix. PHYSICAL EXAMINATION: VITAL SIGNS: Temperature 98.2, pulse 60, blood pressure is now 133/75. GENERAL: The patient is resting in bed, she is in no distress. There is a sitter at the bedside. LUNGS: Clear. HEART: Regular. ABDOMEN: Nontender. RECTAL: Rectal examination with the nurse showed some solid stool in the vault, but no overt impaction. This was removed. Recommendations, trial of clamping NG tube, x-rays today, there is contrast now seen in the colon from her upper GI. ASSESSMENT: 1. Partial small bowel obstruction on CAT scan seems to be the area of cecum, ileocecal area. There is concern for carcinomatosis per Radiology on films. She had an elevated CEA and CA-125. Options for diagnostic laparoscopy were discussed with the patient and the patient's family, who earlier in this week and last week had refused that or considering palliative care. They still have not made a final decision. I have raised with them the option that we still can make definitive diagnosis with laparoscopy if that is what they desire. Apparently, the family is talking amongst themselves to see if they can gain a consistence on willing to proceed with palliative care or further diagnostic studies. 2. Fecal impaction because this is probably a secondary, but noncontributing factor to a bowel obstruction and seems to be resolved. 3. With her contrast migrating into her colon, we are going to do a trial of clamping her NG tube and see if she will tolerate that and start some clear liquids and see if we can get it out. As the family has now seemed to have changed their minds a little bit about the issues of palliative care, we will order labs for tomorrow. Job ID: [id number]
--- NOTE | 2018-11-10 12:30 | PDOC.PN ---
- Subjective Encounter Start Date: 11/10/18 Encounter Start Time: 12:30 Subjective: Patient denies complaints, pleasantly demented. Daughter reports -: belly seems a little more firm since clamping NG tube yesterday but -: not certain. No N/V. - Objective Resuscitation Status - Order Detail: 11/06/18 14:37 Resuscitation Status Routine Resuscitation Status: DNAR: NO Resuscitation Discussed with: d/w family MAR Reviewed: Yes Vital Signs & Weight: Vital Signs (12 hours) Temp Pulse Resp BP Pulse Ox 11/10/18 08:00 96 11/10/18 07:34 97.7 F 63 16 123/73 96 Weight Admit Weight 130 lb 1 oz Weight 130 lb 1 oz I&O: 11/09/18 11/10/18 11/11/18 06:59 06:59 06:59 Intake Total 1250 2983 Output Total 300 Balance 950 2983 Result Diagrams: 11/10/18 07:00 11/10/18 07:00 Phys Exam - Physical Examination Constitutional: NAD HEENT: moist MMs Respiratory: no wheezing, no rales, no rhonchi Cardiovascular: RRR, no significant murmur Gastrointestinal: soft, non-tender mild distension, decreased BS Musculoskeletal: no edema Neurological: non-focal, moves all 4 limbs Psychiatric: normal affect Dx/Plan (1) SBO (small bowel obstruction) Code(s): K56.609 - UNSP INTESTNL OBST, UNSP TO PARTIAL VERSUS COMPLETE OBST Status: Acute Comment: CT ABD AND PELVIS WITH LIVER METS AND OMENTAL NODULARITY, Palliative care on board, hospice pending. Family still undecided. Repeat Abd Xray does not show obstruction, contrast all the way down to rectum. NO more enemas or laxatives. Will clamp NG tube and try clears with the hope that she tolerates it. Plan for diagnostic paracentesis per Dr. Garcia. - Plan cont current plan of care U/S guided paracentesis, Dr. Lopez to see on family request tomorrow. * . - Discharge Day Encounter end time: 12:45
[2018-11-10] MEDS ORDERED: Potassium Chloride 10 MEQ/100 ML PREMIX BAG IVPB SCH (12:45)
--- NOTE | 2018-11-10 14:23 | PRG ---
DATE OF SERVICE: 11/10/2018 SUBJECTIVE: Ms. Lainez is about the same. She has a clamped NG tube. The family does not want to remove that. She is in no distress. OBJECTIVE: VITAL SIGNS: Temperature is 98, pulse 94, respirations 18, blood pressure 136/72. GENERAL: The patient is resting comfortably in bed, talking with the nurse. She has had no emesis or NG output. ASSESSMENT: 1. Partial small bowel obstruction, improved. 2. 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 3. CA of over 100. 4. CEA 125/100. 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 PLAN: Initially, the family wanted to pursue comfort measures that changed over the weekend and they want to be sure of the diagnosis. I have recommended we try a paracentesis with cytology. I talked with Radiology and they are amenable to doing that tomorrow. The radiologist will be here to do that. If that is nondiagnostic, the other diagnosis left would be a laparoscopy. The family asked for second opinion from the patient's previous surgeon, Dr. Aryan Lopez who is not here today. Dr. Spence has talked to Dr. Lopez, and he said he would stop by and see them when he is back tomorrow. Job ID: [id number]
[2018-11-11] MEDS: Dextrose 5 % And 0.9 % NaCl 1,000 ML IV SCH ×2 (05:17→15:53)
--- NOTE | 2018-11-11 07:51 | PDOC.PN ---
- Subjective Encounter Start Date: 11/11/18 Encounter Start Time: 08:50 Subjective: Patient unchanged overnight. Still pleasantly confused from dementia -: and denies any pain or other symptoms. - Objective Resuscitation Status - Order Detail: 11/06/18 14:37 Resuscitation Status Routine Resuscitation Status: DNAR: NO Resuscitation Discussed with: d/w family MAR Reviewed: Yes Vital Signs & Weight: Vital Signs (12 hours) Temp Pulse Resp BP Pulse Ox 11/11/18 04:01 97.8 F 68 16 167/76 H 98 11/11/18 00:00 98 F 60 16 145/82 H 96 11/10/18 20:00 98.6 F 63 18 147/76 H 97 Weight Admit Weight 130 lb 1 oz Weight 130 lb 1 oz I&O: 11/10/18 11/11/18 11/12/18 06:59 06:59 06:59 Intake Total 2983 1470 Balance 2983 1470 Result Diagrams: 11/10/18 07:00 11/10/18 07:00 Phys Exam - Physical Examination Constitutional: NAD HEENT: moist MMs Respiratory: no wheezing, no rales, no rhonchi Cardiovascular: RRR, no significant murmur Gastrointestinal: soft, non-tender, positive bowel sounds a bit distended Neurological: non-focal, moves all 4 limbs Psychiatric: normal affect Dx/Plan (1) SBO (small bowel obstruction) Code(s): K56.609 - UNSP INTESTNL OBST, UNSP TO PARTIAL VERSUS COMPLETE OBST Status: Acute Comment: CT ABD AND PELVIS WITH LIVER METS AND OMENTAL NODULARITY, Palliative care on board, hospice pending. Family still undecided. Repeat Abd Xray does not show obstruction, contrast all the way down to rectum. NO more enemas or laxatives. Will clamp NG tube and try clears with the hope that she tolerates it. Plan for diagnostic paracentesis per Dr. Garcia. - Plan cont current plan of care * . - Discharge Day Encounter end time: 09:10
[2018-11-11] MEDS: Pantoprazole 40 MG VIAL IVP SCH (08:06)
[2018-11-11 10:43] LABS: INR-International Normal Ratio 1.1; Prothrombin Time 14.7 SEC (12.0-14.7)
[2018-11-11 10:44] LABS: PTT 35.3 SEC (22.9-36.1)
--- NOTE | 2018-11-11 11:07 | CON ---
DATE OF CONSULTATION: [facility] CHIEF COMPLAINT: Abdominal distention. HISTORY: The patient is an 88-year-old female, who has dementia. She suffered a fall. She was taken to a freestanding emergency room, where they diagnosed a partial small-bowel obstruction. She was admitted and placed on NG suction, really had very little out her NG tube. She did get some relief from enemas. PAST MEDICAL HISTORY: Dementia, asthma, stress urinary incontinence, and Raymundo esophagus. PAST SURGICAL HISTORY: She has had bilateral inguinal hernia repair. She has had a laparoscopic hiatal hernia repair. She has had a colonoscopy in the past, but it has been many years. MEDICATIONS: Include multivitamins, vitamin D, Singulair, Zyprexa, donepezil, VESIcare, omeprazole, and Dulera. ALLERGIES: CEFTRIAXONE. SOCIAL HISTORY: No tobacco or alcohol. 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 FAMILY HISTORY: Noncontributory. PHYSICAL EXAMINATION: VITAL SIGNS: Temperature is 97.7, pulse 67, blood pressure 167/75. GENERAL: Elderly female, confused, but awake, does not appear to be in any distress. She has a healing cut on her left forehead. HEENT: Pupils are equal, round, and reactive. LUNGS: Clear. HEART: Regular rate and rhythm. ABDOMEN: Distended, really no significant tenderness, rare bowel sounds. EXTREMITIES: Unremarkable, although she has some what looks almost like rheumatoid changes to her hands. LABORATORY DATA: Her white count is 7.8, hemoglobin and hematocrit of 10 and 33, and platelet count 348. Her electrolytes show glucose of 121, potassium 3.4, chloride 112, CO2 of 21. Her CEA is 154. CA 19-9 is 1262 and CA-125 is 104. She had a CT scan of the abdomen showing ascites with a 2 cm low-density lesion in the left lobe of the liver, small nodules in the right lobe, multiple nodules in the omentum with a questionable cecal mass. ASSESSMENT: Probable malignant ascites due to possibly ovarian possibly colon. PLAN: Recommend diagnostic paracentesis. If necessary, we can do a laparoscopy for tissue diagnosis, but at this point, there is no evidence of obstruction. Job ID: [id number]
--- NOTE | 2018-11-11 12:44 | ULT ---
SONOGRAPHIC GUIDED PARACENTESIS: HISTORY: Ascites with omental caking. FINDINGS: After explaining the procedure and answering all questions, a sonographic survey shows a small amount of free fluid. The largest pocket was in the right lower quadrant. A sterile technique, buffered l ocal anesthesia, sonographic guidance, and a right lower quadrant lateral approach was used to carefu lly advance a 19 gauge Yueh needle and catheter into the free fluid. A total volume of 60 mL of slig htly cloudy yellow liquid was aspirated and sent to the laboratory for analysis. A small amount of f luid remained. The catheter was removed. The patient tolerated the procedure well and was returned in unchanged condition. IMPRESSION: Technically successful sonographic guided paracentesis. Pathology is pending. POS: KATIE
--- NOTE | 2018-11-11 16:16 | PRG ---
DATE OF SERVICE: 11/11/2018 SUBJECTIVE: Ms. Lainez's family is at the bedside. She is in no distress. She has an NG tube. It has had little to no output for about 3 days now. OBJECTIVE: VITAL SIGNS: Temperature is 98, pulse 72, blood pressure 125/65. ABDOMEN: Slightly firm, protuberant, dull to percussion. LABORATORY DATA: Labs none today. ASSESSMENT: 1. Ascites, suspected carcinomatosis. 2. Small bowel obstruction related to distal small bowel, transition zone on CAT scan admitted. Now, contrast was in the colon, most recent film. 3. Fecal impaction, resolved. RECOMMENDATIONS: Await cytology. If this is nondiagnostic and the patient's family elected to pursue further, then the next step would be a laparoscopy. I have discussed with the patient's family with her elevated CEA and CA-[address] scan findings. This would suggest carcinomatosis of the abdominal cavity. I have discussed the prognosis and management of that with them. At this time, I have recommended Palliative care. They have been consulted last week. The family is still trying to make a decision what they want to do. Job ID: [id number]
[2018-11-12] MEDS: Dextrose 5 % And 0.9 % NaCl 1,000 ML IV SCH ×2 (02:38→12:40)
[2018-11-12] MEDS: Pantoprazole 40 MG VIAL IVP SCH (08:01)
--- NOTE | 2018-11-12 08:05 | PDOC.PN ---
- Subjective Encounter Start Date: 11/12/18 Encounter Start Time: 12:30 Subjective: Patient with abdominal pain and distension last night, had to put NGT back -: to suction with large amount of dark bilious material out. Feeling better -: this AM. Family decision to go to inpatient hospice [facility] - Objective Resuscitation Status - Order Detail: 11/06/18 14:37 Resuscitation Status Routine Resuscitation Status: DNAR: NO Resuscitation Discussed with: d/w family MAR Reviewed: Yes Vital Signs & Weight: Vital Signs (12 hours) Temp Pulse Resp BP Pulse Ox 11/12/18 07:36 97.7 F 62 16 148/86 H 97 Weight Admit Weight 130 lb 1 oz Weight 130 lb 1 oz I&O: 11/11/18 11/12/18 11/13/18 06:59 06:59 06:59 Intake Total 1470 Balance 1470 Result Diagrams: 11/10/18 07:00 11/10/18 07:00 Phys Exam - Physical Examination Constitutional: NAD HEENT: moist MMs Respiratory: no wheezing, no rales, no rhonchi Cardiovascular: RRR, no significant murmur Gastrointestinal: non-tender decreased bowel sounds, mild distension Neurological: non-focal, moves all 4 limbs Deviation from normal: happy, oriented to person only Dx/Plan (1) SBO (small bowel obstruction) Code(s): K56.609 - UNSP INTESTNL OBST, UNSP TO PARTIAL VERSUS COMPLETE OBST Status: Acute Comment: CT ABD AND PELVIS WITH LIVER METS AND OMENTAL NODULARITY, Palliative care on board, hospice pending. Family still undecided. Repeat Abd Xray does not show obstruction, contrast all the way down to rectum. NO more enemas or laxatives. Will clamp NG tube and try clears with the hope that she tolerates it. Paracentesis done and awaiting cytology. - Plan cont current plan of care Family has decided to transition of inpatient hospice [facility], plan to transfer this afternoon. * . - Discharge Day Encounter end time: 12:50
[2018-11-12 16:10] VITALS: BP 144/87; TEMP 97.5
--- NOTE | 2018-11-13 08:29 | DIS ---
DATE OF ADMISSION: 11/04/2018 DATE OF DISCHARGE: 11/12/2018 PRIMARY CARE PHYSICIAN: Dr. Vitaly Burger. REASON FOR ADMISSION: Small bowel obstruction versus ileus. DIAGNOSES ON DISCHARGE: 1. Small bowel obstruction, intermittent. 2. 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 3. Dementia. CONSULTATIONS: 1. Gastroenterology, Dr. Garcia. 2. General Surgery, Dr. Spence. 3. General Surgery, Dr. Lopez. PROCEDURES: 1. CT of the head without contrast showing, no intracranial process. 2. CT of the cervical spine showing degenerative changes with no evidence of fracture. 3. Acute abdominal series showing mildly distended loops of bowel. 4. CT scan of the abdomen and pelvis with oral and IV contrast showing ascites, fatty liver, indeterminate liver lesions, probable omental caking suspicious for metastatic disease, left renal cyst, colonic diverticulosis, and questionable cecal plus terminal ileum mass as well as findings suggestive of small bowel obstruction though with some progression of contrast past the level of the obstruction. 5. Ultrasound-guided paracentesis. SUMMARY OF HOSPITAL COURSE: This is an 88-year-old female with a history of progressive dementia, unwitnessed fall at home and down for unknown period of time. She had been seeing Dr. Diaz and had seen on the day before admission for some abdominal distention, nausea, loss of appetite, concerning for small bowel obstruction. She was evaluated in the emergency room. CTs were all negative for evidence of trauma that she did have possible small bowel obstruction on her x-ray. Dr. Garcia was consulted. The patient had a CT scan with above results. This was concerning for metastatic cancer given her progressive dementia. Dr. Spence and Dr. Garcia had an extensive discussion with family. On the first day, they were leaning toward hospice and no interventions; however, on discussing further with some family members outside of town, they decided to do some investigation, paracentesis was done with fluid withdrawn for failure of analysis. They did not want a laparoscopy or laparotomy for diagnosis at this time. During the hospitalization, the patient had resolution of her symptoms with placement of NG tube and drainage of fluid from her stomach. This was clamped due to the intermittent incomplete nature of the small bowel obstruction. However, a couple of days after clamping she did have worsened abdominal pain, distention, and felt really bad. Her NG tube was put to suction again and large amount of bilious fluid was removed with resolution of all of her symptoms. At this point, the family determined that they would like to simply transition to hospice, they spoke with [facility] and are transitioning to inpatient hospice at this time. DISCHARGE MANAGEMENT: Discharged to inpatient hospice at [facility]. DISCHARGE MEDICATIONS: None. ACTIVITY: As tolerated. Treatment as per the hospice team [facility]. Job ID: [id number]
--- NOTE | 2018-11-13 17:58 | EKG ---
Test Reason : FALL Blood Pressure : / mmHG Vent. Rate : 073 BPM Atrial Rate : 073 BPM P-R Int : 134 ms QRS Dur : 122 ms QT Int : 418 ms P-R-T Axes : 038 -63 -08 degrees QTc Int : 460 ms Normal sinus rhythm Left axis deviation Right bundle branch block Possible Lateral infarct , age undetermined Abnormal ECG Confirmed by JULEE FUNK DO ([id number]), remote mortgage underwriter BUCK LO ([id number]) on 11/13/2018 5:57:39 PM Referred By: JEANNE Confirmed By:JULEE FUNK DO
== END 2018-11-12 16:17 | disposition hospice, inpatient (51) | DRG 389 ==
LOC: ERS 09:31 → T4-B 13:52
PROVIDERS: ADMIT Family Medicine; ATTEND Family Medicine
PROC: 0D9670Z Drainage of Stomach with Drainage Device, Via Natural or Artificial Opening (ICD-10-PCS; principal; 2018-11-04)
PROC: 0W9G3ZX Drainage of Peritoneal Cavity, Percutaneous Approach, Diagnostic (ICD-10-PCS; 2018-11-11)
DX: K56.609 Unspecified intestinal obstruction, unspecified as to partial versus complete obstruction (principal); C78.6 Secondary malignant neoplasm of retroperitoneum and peritoneum; R18.8 Other ascites; F03.90 Unspecified dementia, unspecified severity, without behavioral disturbance, psychotic disturbance, mood disturbance, and anxiety; K22.70 Barrett's esophagus without dysplasia; K21.9 Gastro-esophageal reflux disease without esophagitis; Z90.3 Acquired absence of stomach [part of]; Z79.01 Long term (current) use of anticoagulants; Z79.899 Other long term (current) drug therapy; E86.0 Dehydration; K56.41 Fecal impaction; K56.7 Ileus, unspecified; D72.829 Elevated white blood cell count, unspecified; W18.30XA Fall on same level, unspecified, initial encounter; Y92.019 Unspecified place in single-family (private) house as the place of occurrence of the external cause; Z66 Do not resuscitate; J45.909 Unspecified asthma, uncomplicated; Z88.1 Allergy status to other antibiotic agents; S01.81XA Laceration without foreign body of other part of head, initial encounter
CPT/HCPCS: 36415; 49083; 51701; 70450; 71045; 71046; 72125; 74018; 74019; 74022; 74177; 80048; 80053; 81003; 81015; 82378; 83735; 84100; 84443; 84484; 85007; 85025; 85027; 85610; 85730; 86301; 86304; 87086; 88112; 88305; 93005; A4353; C9113; J1650; J3480